=== PATIENT | female | born 1985 | race Caucasian/White ===

== ENCOUNTER 2017-12-11 06:50 | Inpatient (IN) | payer OTHER ==
[2017-12-11 07:59] LABS: AUTOMATED NEUTROPHIL # 10.2 TH/MM3 (1.8-7.7); BASOPHIL % 0.2 % (0.0-2.0); EOSINOPHIL # 0.1 TH/MM3 (0-0.4); EOSINOPHIL % 0.7 % (0.0-4.0); HEMATOCRIT 36.5 % (35.0-46.0); HEMOGLOBIN 12.5 GM/DL (11.6-15.3); LYMPH % 13.8 % (9.0-44.0); LYMPHOCYTE # 1.8 TH/MM3 (1.0-4.8); MEAN CELL VOLUME 89.3 FL (80.0-100.0); MEAN CORPUSCULAR HEMOGLOBIN 30.5 PG (27.0-34.0); MEAN CORPUSCULAR HGB CONC 34.2 % (32.0-36.0); MEAN PLATELET VOLUME 8.2 FL (7.0-11.0); MONO % 8.6 % (0.0-8.0); MONOCYTE # 1.1 TH/MM3 (0-0.9); NEUT % 76.7 % (16.0-70.0); PLATELET COUNT 190 TH/MM3 (150-450); RED BLOOD COUNT 4.09 MIL/MM3 (4.00-5.30); RED CELL DISTRIBUTION WIDTH 13.9 % (11.6-17.2); WHITE BLOOD COUNT 13.3 TH/MM3 (4.0-11.0)
[2017-12-11] MEDS ORDERED: fentaNYL 2MCG-BUPIV 0.125% INJ 100 ML ONE (08:42)
[2017-12-11] MEDS ORDERED: ePHEDrine/NS 25 MG/5 ML SYRINGE ONE (08:42)
[2017-12-11] MEDS ORDERED: TERBUTALINE INJ 1 MG/ML AMP ONE (08:50)
[2017-12-11] MEDS ORDERED: BUPIVACAINE HCL PF 0.25% 10 ML VIAL ONE ×2 (08:51→08:53)
--- NOTE | 2017-12-11 09:06 | HHI.HP ---
HPI Chief Complaint persistent breech at term for version Date Seen: Dec 11, 2017 Time Seen: 09:01 Travel History International Travel<30 Days: No Contact w/Intl Traveler<30Days: No Known Affected Area: No History of Present Illness HPI 32 yo mwf at 38 weeks EGA transfer to practice at 35 weeks with persistent breech, posterior placenta and normal JERONIMO. Here for exterior cephalic version. PNC at [facility]. 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 No PTL, Diabetes or hypertension.No contractions, leaking or bleeding. GFM No WELCH nausea, vomiting, blurred vision or RUQT Weeks Gestation: 38 Para: 0 : 3 Last Menstrual Period: Dec 11, 2017 History Past Medical History Medical History: Denies Significant Hx Obstetric History Obstetric History D & C x 2 Past Surgical History Surgical History: No Previous Surgery ([facility]itory of [place] in 2005 with normal paps since) Family History Family History: Negative Social History Alcohol Use: No Tobacco Use: No Substance Abuse: No Allergies-Medications (Allergen,Severity, Reaction): Coded Allergies: No Known Allergies (Verified , 12/11/06) Review of Systems Except as stated in HPI: all other systems reviewed are Neg Physical Exam Narrative GENERAL: Well-nourished, well-developed patient. SKIN: Warm and dry. HEAD: Normocephalic and atraumatic. EYES: No scleral icterus. No injection or drainage. ENT: No nasal drainage noted. Mucous membranes pink. Airway patent. NECK: Supple, trachea midline. No JVD. CARDIOVASCULAR: Regular rate and rhythm without murmurs, gallops, or rubs. RESPIRATORY: Breath sounds equal bilaterally. No accessory muscle use. BREASTS: Bilateral exam showed no masses , no retractions, no nipple discharge. ABDOMEN/GI: Abdomen soft, non-tender, bowel sounds present, no rebound, no guarding term fundus cervix closed and soft EFW 7 pounds pelvis clinically adequate sono confirms martin breech EXTREMITIES: No cyanosis or edema. BACK: Nontender without obvious deformity. No CVA tenderness. NEUROLOGICAL: Awake and alert. Motor and sensory grossly within normal limits. Five out of 5 muscle strength in all muscle groups. Normal speech. Caprini VTE Risk Assessment Caprini VTE Risk Assessment: No/Low Risk (score <= 1) Caprini Risk Assessment Model Point Value = 1 Point Value = 2 Point Value = 3 Point Value = 5 Age 41-60 Minor surgery BMI > 25 kg/m2 Swollen legs Varicose veins or History of unexplained or recurrent spontaneous Oral contraceptives or hormone replacement Sepsis (< 1 month) Serious lung disease, including pneumonia (< 1 month) Abnormal pulmonary function Acute myocardial infarction Congestive heart failure (< 1 month) History of inflammatory bowel disease Medical patient at bed rest Age 61-74 Arthroscopic surgery Major open surgery (> 45 min) Laparoscopic surgery (> 45 min) Malignancy Confined to bed (> 72 hours) Immobilizing plaster cast Central venous access Age >= 75 History of VTE Family history of VTE Factor V Leiden Prothrombin [id number] Lupus anticoagulant Anticardiolipin antibodies Elevated serum homocysteine Heparin-induced thrombocytopenia Other congenital or acquired thrombophilia Stroke (< 1 month) Elective arthroplasty Hip, pelvis, or leg fracture Acute spinal cord injury (< 1 month) Prophylaxis Regimen Total Risk Factor Score Risk Level Prophylaxis Regimen 0-1 Low Early ambulation 2 Moderate Order ONE of the following: *Sequential Compression Device (SCD) *Heparin 5000 units SQ BID 3-4 Higher Order ONE of the following medications: *Heparin 5000 units SQ TID *Enoxaparin/Lovenox 40 mg SQ daily (WT < 150 kg, CrCl > 30 mL/min) *Enoxaparin/Lovenox 30 mg SQ daily (WT < 150 kg, CrCl > 10-29 mL/min) *Enoxaparin/Lovenox 30 mg SQ BID (WT < 150 kg, CrCl > 30 mL/min) AND/OR *Sequential Compression Device (SCD) 5 or more Highest Order ONE of the following medications: *Heparin 5000 units SQ TID (Preferred with Epidurals) *Enoxaparin/Lovenox 40 mg SQ daily (WT < 150 kg, CrCl > 30 mL/min) *Enoxaparin/Lovenox 30 mg SQ daily (WT < 150 kg, CrCl > 10-29 mL/min) *Enoxaparin/Lovenox 30 mg SQ BID (WT < 150 kg, CrCl > 30 mL/min) AND *Sequential Compression Device (SCD) Data Data Orders Orders Complete Blood Count With Diff (12/11/17 07:33) Fentanyl 2mcg-Bupiv 0.125% Inj (Fentanyl (12/11/17 08:42) Ephedrine/Ns 25 Mg/5 Ml Syr (Ephedrine/N (12/11/17 08:42) Terbutaline Inj (Brethine Inj) (12/11/17 08:50) Bupivacaine Pf 0.25% Inj (Marcaine Pf 0. (12/11/17 08:51) Bupivacaine Pf 0.25% Inj (Marcaine Pf 0. (12/11/17 08:53) Labs Laboratory Tests Test 12/11/17 07:33 White Blood Count 13.3 Red Blood Count 4.09 Hemoglobin 12.5 Hematocrit 36.5 Mean Corpuscular Volume 89.3 Mean Corpuscular Hemoglobin 30.5 Mean Corpuscular Hemoglobin Concent 34.2 Red Cell Distribution Width 13.9 Platelet Count 190 Mean Platelet Volume 8.2 Neutrophils (%) (Auto) 76.7 Lymphocytes (%) (Auto) 13.8 Monocytes (%) (Auto) 8.6 Eosinophils (%) (Auto) 0.7 Basophils (%) (Auto) 0.2 Neutrophils # (Auto) 10.2 Lymphocytes # (Auto) 1.8 Monocytes # (Auto) 1.1 Eosinophils # (Auto) 0.1 Basophils # (Auto) 0.0 CBC Comment DIFF FINAL Differential Comment Assessment/Plan Assessment and Plan attempt version; if successful will likely induce attempt version: not successful and tolerated home attempt version if not successful and in distress; section epidural and rowe in place. Kacy Alex MD Dec 11, 2017 09:06
--- NOTE | 2017-12-11 10:26 | PD.OB.ANTE ---
Subjective Interval History Version attempted twice--once over 20 minutes then with 30 min reprieve and then second attempt which was successful. Initial attempts were counter clockwise with head in RUQ and succesful procedure went clockwise. Infant tolerated procedure with no change in heart rate. Being monitored at this time. Objective Lab & Micro Results Test 12/11/17 07:33 White Blood Count 13.3 TH/MM3 Red Blood Count 4.09 MIL/MM3 Hemoglobin 12.5 GM/DL Hematocrit 36.5 % Mean Corpuscular Volume 89.3 FL Mean Corpuscular Hemoglobin 30.5 PG Mean Corpuscular Hemoglobin Concent 34.2 % Red Cell Distribution Width 13.9 % Platelet Count 190 TH/MM3 Mean Platelet Volume 8.2 FL Neutrophils (%) (Auto) 76.7 % Lymphocytes (%) (Auto) 13.8 % Monocytes (%) (Auto) 8.6 % Eosinophils (%) (Auto) 0.7 % Basophils (%) (Auto) 0.2 % Neutrophils # (Auto) 10.2 TH/MM3 Lymphocytes # (Auto) 1.8 TH/MM3 Monocytes # (Auto) 1.1 TH/MM3 Eosinophils # (Auto) 0.1 TH/MM3 Basophils # (Auto) 0.0 TH/MM3 CBC Comment DIFF FINAL Differential Comment Physical Exam GENERAL: Well-nourished, well-developed patient. CARDIOVASCULAR: Regular rate and rhythm without murmurs, gallops, or rubs. RESPIRATORY: Breath sounds equal bilaterally. No accessory muscle use. ABDOMEN/GI: Abdomen soft, non-tender. Fundus: [-] GENITOURINARY: External Genitalia: intact and normal in appearance Cervix: [-] Dilatation: [-] Effacement: [-] Station: [-] Presentation: [-] Membranes: [-] Uterine Contractions: [-] FHT's: Category: [-] Baseline: [-] Reactive: [-] Variability: [-] Decels: [-] EXTREMITIES: No cyanosis or edema, non-tender, without signs of DVT. Assessment and Plan Assessment and Plan attempt version; if successful will likely induce attempt version: not successful and tolerated home attempt version if not successful and infant in distress; section epidural and rowe in place. Kacy Alex MD Dec 11, 2017 10:26
[2017-12-11] MEDS ORDERED: OXYTOCIN 30 UNITS 500ML PREMIX IV ONE (10:45)
[2017-12-11] MEDS ORDERED: MINERAL OIL 10 ML VIAL TOPICAL PRN (10:45)
[2017-12-11] MEDS ORDERED: NS 1000 ML IV PRN (10:45)
[2017-12-11] MEDS ORDERED: LIDOCAINE HCL 1% 50 ML VIAL I-DERMAL PRN (10:45)
[2017-12-11] MEDS ORDERED: LIDOCAINE HCL 1% 50 ML VIAL INFIL PRN (10:45)
[2017-12-11] MEDS ORDERED: LACTATED RINGER'S 1000 ML IV SCH (10:45)
[2017-12-11] MEDS ORDERED: LACTATED RINGER'S 1000 ML BOLUS IV PRN (10:45)
[2017-12-11] MEDS ORDERED: CITRIC ACID-SODIUM CITRATE LIQ 30 ML UDC PO SCH (10:45)
[2017-12-11] MEDS ORDERED: NS 500 ML BOLUS IV PRN (10:45)
[2017-12-11 13:13] LABS: AMORPHOUS SEDIMENT, URINE OCC; BACTERIA, URINE OCC /hpf; BILIRUBIN, URINE NEG (NEG); BLOOD, URINE NEG (NEG); GLUCOSE,URINE NEG (NEG); KETONE, URINE NEG (NEG); MUCUS URINE FEW /lpf (OCC); NITRITE,URINE NEG (NEG); PH, URINE 6.5 (5.0-8.5); SQUAMOUS EPITHELIAL CELL URINE 1 /hpf (0-5); URINE COLOR LIGHT-YELLOW (YELLW/STRAW); URINE LEUKOCYTE ESTERASE NEG (NEG)
--- NOTE | 2017-12-11 13:44 | PD.OB.ANTE ---
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 Objective Lab & Micro Results Test 12/11/17 07:30 12/11/17 07:33 12/11/17 12:51 Urine Color LIGHT-YELLOW Urine Turbidity CLEAR Urine pH 6.5 Urine Specific [place] 1.011 Urine Protein NEG mg/dL Urine Glucose (UA) NEG mg/dL Urine Ketones NEG mg/dL Urine Occult Blood NEG Urine Nitrite NEG Urine Bilirubin NEG Urine Urobilinogen LESS THAN 2.0 MG/DL Urine Leukocyte Esterase NEG Urine RBC LESS THAN 1 /hpf Urine WBC LESS THAN 1 /hpf Urine Squamous Epithelial Cells 1 /hpf Urine Amorphous Sediment OCC Urine Bacteria OCC /hpf Urine Mucus FEW /lpf Microscopic Urinalysis Comment CULT NOT INDICATED White Blood Count 13.3 TH/MM3 Red Blood Count 4.09 MIL/MM3 Hemoglobin 12.5 GM/DL Hematocrit 36.5 % Mean Corpuscular Volume 89.3 FL Mean Corpuscular Hemoglobin 30.5 PG Mean Corpuscular Hemoglobin Concent 34.2 % Red Cell Distribution Width 13.9 % Platelet Count 190 TH/MM3 Mean Platelet Volume 8.2 FL Neutrophils (%) (Auto) 76.7 % Lymphocytes (%) (Auto) 13.8 % Monocytes (%) (Auto) 8.6 % Eosinophils (%) (Auto) 0.7 % Basophils (%) (Auto) 0.2 % Neutrophils # (Auto) 10.2 TH/MM3 Lymphocytes # (Auto) 1.8 TH/MM3 Monocytes # (Auto) 1.1 TH/MM3 Eosinophils # (Auto) 0.1 TH/MM3 Basophils # (Auto) 0.0 TH/MM3 CBC Comment DIFF FINAL Differential Comment Physical Exam GENERAL: Well-nourished, well-developed patient. CARDIOVASCULAR: Regular rate and rhythm without murmurs, gallops, or rubs. RESPIRATORY: Breath sounds equal bilaterally. No accessory muscle use. ABDOMEN/GI: Abdomen soft, non-tender. Fundus: [-] GENITOURINARY: External Genitalia: intact and normal in appearance Cervix: [-] Dilatation: [-] Effacement: [-] Station: [-] Presentation: [-] Membranes: [-] Uterine Contractions: [-] FHT's: Category: [-] Baseline: [-] Reactive: [-] Variability: [-] Decels: [-] EXTREMITIES: No cyanosis or edema, non-tender, without signs of DVT. Assessment and Plan Assessment and Plan attempt version; if successful will likely induce attempt version: not successful and tolerated home attempt version if not successful and infant in distress; section epidural and rowe in place. Kacy Alex MD Dec 11, 2017 13:44
--- NOTE | 2017-12-11 13:46 | HHI.DCPOC ---
Discharge Care Plan Report Symptoms to Your Doctor -Temperature above 100.5 degrees -Redness, of incision or excessive or foul smelling drainage -Unusual pain or calf pain -Increased vaginal bleeding -Painful or difficulty urinating -Feelings of extreme sadness or anxiety after 2 weeks Goals to Promote Your Health * To prevent worsening of your condition and complications * To maintain your health at the optimal level Directions to Meet Your Goals Take your medications as prescribed Follow your dietary instruction Follow activity as directed Ensure plenty of rest for recovery Drink fluids for hydration Keep your appointments as scheduled Take your immunizations and boosters as scheduled If your symptoms worsen call your PCP, if no PCP go to Urgent Care Center or Emergency Room Smoking is Dangerous to Your Health. Avoid second hand smoke Call the 24-hour crisis hotline for domestic abuse at Kacy Alex MD Dec 11, 2017 13:46
== END 2017-12-11 13:44 | disposition home or self-care (01) | DRG 782 ==
LOC: H2EB 06:50
PROVIDERS: ADMIT Obstetrics & Gynecology; ATTEND Obstetrics & Gynecology
PROC: 10S0XZZ Reposition Products of Conception, External Approach (ICD-10-PCS; principal; 2017-12-11)
DX: O32.1XX0 Maternal care for breech presentation, not applicable or unspecified (principal); Z3A.35 35 weeks gestation of pregnancy
CPT/HCPCS: 80307; 81001; 85025; 86900; 86901; G0481; J3105

== ENCOUNTER 2017-12-21 20:51 | Inpatient (IN) | payer OTHER ==
[2017-12-21 22:25] LABS: BILIRUBIN, URINE NEG (NEG); BLOOD, URINE NEG (NEG); CALCIUM OXALATE CRYSTALS,URINE MANY /hpf; COMMENT (UR) CULT NOT INDICATED; CULTURE IF INDICATED CULT NOT INDICATED; GLUCOSE,URINE TRACE mg/dL (NEG); KETONE, URINE NEG (NEG); MUCUS URINE FEW /lpf (OCC); NITRITE,URINE NEG (NEG); PH, URINE 5.5 (5.0-8.5); SQUAMOUS EPITHELIAL CELL URINE <1 /hpf (0-5); URINE COLOR LIGHT-YELLOW (YELLW/STRAW); URINE LEUKOCYTE ESTERASE NEG (NEG)
[2017-12-21 22:27] LABS: AUTOMATED NEUTROPHIL # 7.8 TH/MM3 (1.8-7.7); BASOPHIL % 0.2 % (0.0-2.0); EOSINOPHIL # 0.1 TH/MM3 (0-0.4); EOSINOPHIL % 1.2 % (0.0-4.0); HEMATOCRIT 35.8 % (35.0-46.0); HEMO FLAGS DIFF FINAL; HEMOGLOBIN 12.4 GM/DL (11.6-15.3); LYMPH % 23.1 % (9.0-44.0); LYMPHOCYTE # 2.7 TH/MM3 (1.0-4.8); MEAN CELL VOLUME 88.4 FL (80.0-100.0); MEAN CORPUSCULAR HEMOGLOBIN 30.6 PG (27.0-34.0); MEAN CORPUSCULAR HGB CONC 34.6 % (32.0-36.0); MEAN PLATELET VOLUME 8.4 FL (7.0-11.0); MONO % 8.4 % (0.0-8.0); NEUT % 67.1 % (16.0-70.0); PLATELET COUNT 191 TH/MM3 (150-450); RED BLOOD COUNT 4.05 MIL/MM3 (4.00-5.30); RED CELL DISTRIBUTION WIDTH 14.1 % (11.6-17.2); WHITE BLOOD COUNT 11.6 TH/MM3 (4.0-11.0)
[2017-12-21] MEDS: DINOPROSTONE 10 MG INSERT-LEAVE FOR 12 HOURS VAGINAL (22:30)
[2017-12-21 22:32] LABS: AMPHETAMINE, URINE NEG (NEG); BARBITURATES, URINE NEG (NEG); BENZODIAZEPINE,URINE NEG (NEG); CANNABINOIDS, URINE NEG (NEG); COCAINE, URINE NEG (NEG)
[2017-12-22 05:32] LABS: ALBUMIN 2.7 GM/DL (3.4-5.0); ALT (GPT) 17 U/L (10-53); ANION GAP 8 MEQ/L (5-15); AST (GOT) 17 U/L (15-37); BICARBONATE 25.1 MEQ/L (21.0-32.0); BLOOD UREA NITROGEN 9 MG/DL (7-18); CALCIUM 9.2 MG/DL (8.5-10.1); CHLORIDE 105 MEQ/L (98-107); CREATININE 0.61 MG/DL (0.50-1.00); GLOMERULAR FILTRATION RATE 114 ML/MIN (>89); GLUCOSE,RANDOM 89 MG/DL (74-106); POTASSIUM 3.6 MEQ/L (3.5-5.1); SODIUM (NA) 138 MEQ/L (136-145)
[2017-12-22 05:35] LABS: ALKALINE PHOSPHATASE 129 U/L (45-117); TOTAL BILIRUBIN ADULT 0.2 MG/DL (0.2-1.0); TOTAL PROTEIN 6.6 GM/DL (6.4-8.2)
[2017-12-22] MEDS: OXYTOCIN 30 UNITS-500ML PREMIX 500 ML IV (10:03)
[2017-12-22] MEDS ORDERED: LIDOCAINE HCL 1% 50 ML VIAL I-DERMAL (14:15)
[2017-12-22] MEDS ORDERED: CITRIC ACID-SODIUM CITRATE LIQ 30 ML UDC PO (14:15)
[2017-12-22] MEDS ORDERED: LIDOCAINE HCL 1% 50 ML VIAL INFIL (14:15)
[2017-12-22] MEDS ORDERED: NS 1000 ML IV (14:15)
[2017-12-22] MEDS ORDERED: NS 500 ML BOLUS IV (14:15)
[2017-12-22] MEDS ORDERED: ONDANSETRON HCL 4 MG/2 ML VIAL IV PUSH (14:15)
[2017-12-22] MEDS ORDERED: OXYTOCIN 30 UNITS 500ML PREMIX IV (14:15)
[2017-12-22] MEDS ORDERED: MINERAL OIL 10 ML VIAL TOPICAL (14:15)
[2017-12-22] MEDS ORDERED: ZOLPIDEM TARTRATE 10 MG TAB PO (14:15)
[2017-12-22] MEDS: LACTATED RINGER'S 1000 ML IV ×2 (14:22→23:33)
[2017-12-22] MEDS: MISOPROSTOL 25 MCG TAB OTHER (16:17)
[2017-12-22] MEDS: fentaNYL 2MCG-BUPIV 0.125% INJ 100 ML (23:33)
[2017-12-22] MEDS: LACTATED RINGER'S 1000 ML BOLUS IV (23:34)
[2017-12-23] MEDS: ePHEDrine/NS 25 MG/5 ML SYRINGE (00:03)
[2017-12-23] MEDS ORDERED: DO NOT ADMINISTER ANTICOAGULANTS (00:30)
[2017-12-23] MEDS ORDERED: NO SYSTEM NARCOTICS (00:30)
[2017-12-23] MEDS ORDERED: ePHEDrine/NS 25 MG/5 ML SYRINGE IV PUSH (00:30)
[2017-12-23] MEDS: fentaNYL 2MCG-BUPIV 0.125% 100 ML EPIDURAL ×3 (06:54→18:38)
[2017-12-23] MEDS: LACTATED RINGER'S 1000 ML IV ×3 (06:55→17:10)
[2017-12-23] MEDS: LACTATED RINGER'S 1000 ML BOLUS IV (09:26)
[2017-12-23] MEDS: ceFAZolin 1,000 MG/NS 100 ML IV ×2 (09:26→15:24)
[2017-12-23] MEDS: LIDOCAINE 2%/EPINEPHrine PF 1:200,000 20ML SDV OTHER (12:00)
[2017-12-23] MEDS: KETOROLAC TROMETHAMINE 30 MG/ML (IVP) VIAL IV PUSH (12:00)
[2017-12-23] MEDS: ONDANSETRON HCL 4 MG/2 ML VIAL IV (12:00)
[2017-12-23] MEDS: LACTATED RINGER'S 1000 ML INJ 1,000 ML IV (12:00)
[2017-12-23] MEDS: OXYTOCIN 10 UNIT/ML AMP IV (12:00)
[2017-12-23] MEDS: ACETAMINOPHEN 325 MG TAB PO (16:06)
[2017-12-23] MEDS ORDERED: LACTATED RINGER'S 1000 ML INJ 1,000 ML IV ×2 (20:13→20:43)
[2017-12-23] MEDS ORDERED: EPIDURAL-DIPHENHYDRAMINE HCL 50 MG CAP PO (20:45)
[2017-12-23] MEDS ORDERED: EPIDURAL-DO NOT ADMINISTER ANTICOAGULANTS (20:45)
[2017-12-23] MEDS ORDERED: EPIDURAL-NALOXONE HCL 0.4 MG/ML AMP IV PUSH (20:45)
[2017-12-23] MEDS ORDERED: EPIDURAL-DIPHENHYDRAMINE HCL 50 MG/ML VIAL IV PUSH (20:45)
[2017-12-23] MEDS ORDERED: EPIDURAL-NO SYSTEMIC NARCOTICS (20:45)
[2017-12-23] MEDS ORDERED: ceFAZolin 2 GM PREMIX 50 ML IV (21:15)
[2017-12-23] MEDS ORDERED: MORPHINE SULFATE PF 5 MG/10 ML VIAL (21:41)
[2017-12-23] MEDS ORDERED: CITRIC ACID-SODIUM CITRATE LIQ 30 ML UDC PO (21:45)
[2017-12-23] MEDS ORDERED: ONDANSETRON ODT 4 MG TAB PO (22:45)
[2017-12-23] MEDS ORDERED: SODIUM CHLORIDE 0.9% FLUSH 10 ML FLUSH IV FLUSH (22:45)
[2017-12-23] MEDS ORDERED: KETOROLAC TROMETHAMINE 60 MG/2 ML (IM) VIAL IM (22:45)
[2017-12-23] MEDS ORDERED: ACETAMINOPHEN 1000 MG/100 ML 100 ML IV (22:45)
[2017-12-23] MEDS ORDERED: ZOLPIDEM TARTRATE 5 MG TAB PO (22:45)
[2017-12-24] MEDS: OXYTOCIN 30 UNITS-500ML PREMIX 500 ML IV (01:22)
[2017-12-24] MEDS: diphenhydrAMINE HCL 50 MG/ML VIAL IV PUSH (02:05)
[2017-12-24] MEDS ORDERED: LACTATED RINGER'S 1000 ML INJ 1,000 ML IV (03:37)
[2017-12-24] MEDS ORDERED: OXYTOCIN 30 UNITS-500ML PREMIX 500 ML IV (03:45)
[2017-12-24 05:55] LABS: AUTOMATED NEUTROPHIL # 13.4 TH/MM3 (1.8-7.7); BASOPHIL % 0.2 % (0.0-2.0); EOSINOPHIL # 0.1 TH/MM3 (0-0.4); EOSINOPHIL % 0.4 % (0.0-4.0); HEMATOCRIT 32.1 % (35.0-46.0); HEMO FLAGS DIFF FINAL; LYMPH % 12.3 % (9.0-44.0); MEAN CORPUSCULAR HEMOGLOBIN 30.9 PG (27.0-34.0); MEAN CORPUSCULAR HGB CONC 34.4 % (32.0-36.0); MEAN PLATELET VOLUME 8.4 FL (7.0-11.0); MONO % 5.4 % (0.0-8.0); MONOCYTE # 0.9 TH/MM3 (0-0.9); NEUT % 81.7 % (16.0-70.0); PLATELET COUNT 160 TH/MM3 (150-450); RED BLOOD COUNT 3.57 MIL/MM3 (4.00-5.30); RED CELL DISTRIBUTION WIDTH 14.1 % (11.6-17.2); WHITE BLOOD COUNT 16.4 TH/MM3 (4.0-11.0)
[2017-12-24] MEDS: oxyCODONE/ACETAMINOPHEN 5 MG/325 MG TAB PO ×4 (08:47→19:26)
[2017-12-24] MEDS ORDERED: SODIUM CHLORIDE 0.9% FLUSH 10 ML FLUSH IV FLUSH (09:00)
[2017-12-24] MEDS: IBUPROFEN 600 MG TAB PO ×2 (13:04→19:26)
[2017-12-24] MEDS ORDERED: DIPHTH/TETANUS/ACEL PERTUSSIS (BOOSTER) 0.5 ML VIAL/PFS IM (16:00)
[2017-12-24] MEDS ORDERED: MEASLES, MUMPS, RUBELLA VACCINE 0.5 ML VIAL SQ (16:00)
[2017-12-24] MEDS: DOCUSATE SODIUM 50 MG/SENNA 8.6 MG TAB PO (19:25)
[2017-12-25] MEDS: oxyCODONE/ACETAMINOPHEN 5 MG/325 MG TAB PO ×4 (03:48→22:44)
[2017-12-25] MEDS: IBUPROFEN 600 MG TAB PO ×3 (03:48→22:43)
[2017-12-25] MEDS: SIMETHICONE 80 MG CHEWABLE TAB PO (09:11)
[2017-12-25] MEDS: DOCUSATE SODIUM 50 MG/SENNA 8.6 MG TAB PO ×2 (09:12→22:44)
[2017-12-25 10:19] LABS: BATH SALTS (MDPV) UR NEG (NEG); BUPRENORPHINE UR NEG (NEG); ECSTASY (MDMA) UR NEG (NEG); FENTANYL UR NEG (NEG); HEROIN (6-ACETYLMORPHINE) UR NEG (NEG); K2 SPICE UR NEG (NEG); OBGABAPENTIN UR NEG (NEG); OBHYDROMORPHONE U NEG (NEG); OBMETHADONE UR NEG (NEG); OXYCODONE (PERCODAN) NEG (NEG); PHENCYCLIDINE URINE NEG (NEG)
[2017-12-26] MEDS: oxyCODONE/ACETAMINOPHEN 5 MG/325 MG TAB PO ×3 (02:25→12:34)
[2017-12-26] MEDS: IBUPROFEN 600 MG TAB PO ×2 (07:49→14:57)
== END 2017-12-26 15:09 | disposition home or self-care (01) | DRG 766 ==
LOC: H1EA 12-23 23:55 → H2EB 20:51
PROC: 3E0P7VZ Introduction of Hormone into Female Reproductive, Via Natural or Artificial Opening (ICD-10-PCS; 2017-12-21)
PROC: 10907ZC Drainage of Amniotic Fluid, Therapeutic from Products of Conception, Via Natural or Artificial Opening (ICD-10-PCS; 2017-12-22)
PROC: 10D00Z1 Extraction of Products of Conception, Low, Open Approach (ICD-10-PCS; principal; 2017-12-23)
PROC: 3E0S3BZ Introduction of Anesthetic Agent into Epidural Space, Percutaneous Approach (ICD-10-PCS; 2017-12-23)
DX: O14.04 Mild to moderate pre-eclampsia, complicating childbirth (principal); O32.8XX0 Maternal care for other malpresentation of fetus, not applicable or unspecified; Z37.0 Single live birth; Z3A.39 39 weeks gestation of pregnancy
CPT/HCPCS: 59025; 80053; 80307; 81001; 85025